=== PATIENT | female | born 1990 | race African-American/Black ===

== ENCOUNTER 2025-03-06 09:51 | Outpatient (REF) | payer OTHER, SELFPAY ==
--- NOTE | ~2025-03-06 | XR_ITS ---
EXAMINATION: XR KNEE 3 VIEWS LEFT HISTORY: M25.562 - Pain in left knee COMPARISON: There are no prior studies available for comparison. FINDINGS: Three views of the left knee are submitted. Osseous mineralization is normal. There is no fracture or dislocation. The joint spaces are preserved. The soft tissues are unremarkable. There is no joint effusion. XR/XR knee LT 3V IMPRESSION: Unremarkable examination of the left knee. Electronically signed by: Alok Mcclain MD 03/06/2025 03:21 PM EDT
--- OUTSIDE RECORDS SUMMARY | 2025-03-07 10:33 | XMS_ITS | Clinical Summary ---
Author Organization [facility] Address [address] [place] [address] Care Team Providers Care Equip Tech Name Role Phone Erasto Gomes MD Primary [...] age to complete this topic Care Teams Equip Tech Relationship Specialty Start Date End Date Erasto Gomes MD PCP - General Family Medicine 07/07/23
--- OUTSIDE RECORDS SUMMARY | 2025-03-07 10:33 | XMS_ITS | Clinical Summary ---
Author Organization [facility] it Address [address] [place] [address] Care Team Providers Care Road Tester Name Role Phone Erasto Gomes MD Primary Care Provider [phone] Allergies Active Allergy Reactions Criticality Noted Date [...] age to complete this topic Care Teams Road Tester Relationship Specialty Start Date End Date Erasto Gomes MD PCP - General 07/07/23
--- OUTSIDE RECORDS SUMMARY | 2025-03-07 10:33 | XMS_ITS | Encounter Summary ---
Author Organization [facility] Address [address] [place] [address] Care Team Providers Care Plumbing Technician Name Role Phone PcpZohra Primary Care Provider Kelly Genao APRN Primary Care Provider [phone] Encounter Details Date Type Department Care Team (Late st Contact Info) Description 08/17/2019 Scanned Document [facility] Neurology [address] [place] [address] Tanya Diane MD 35 [facility] 6 [place] [address] Social History Tobacco Use Types Packs/Day Years [...] on filedocumented in this encounter Care Teams Plumbing Technician Relationship Specialty Start Date End Date PcpZohra PCP - General General Medicine 09/16/18 12/13/19 Kelly Alvares APRN [address] [place] [id number] PCP - General Adult Health - PA/APNP/JUVENILE PROBATION OFFICER/PAN PULLER 12/14/19 documented as of this encounter
== END 2025-03-06 09:52 | disposition home or self-care (01) ==
LOC: HO.HOSX 09:51
PROVIDERS: Visit Provider Orthopaedic Surgery
DX: S83.242D Other tear of medial meniscus, current injury, left knee, subsequent encounter (principal); M25.562 Pain in left knee; Z79.1 Long term (current) use of non-steroidal anti-inflammatories (NSAID); X50.0XXD Overexertion from strenuous movement or load, subsequent encounter
CPT/HCPCS: 73562; 99202

== ENCOUNTER 2025-03-06 15:00 | Outpatient (AMB) | payer OTHER, SELFPAY ==
--- NOTE | 2025-03-06 15:10 | A.OFFVIS_ITS ---
Vital Signs 03/06/25 15:13 Height 5 ft 4 in Weight 160 lb BMI 27.5 Intake Visit Reasons: Left knee pain and giving way Intake Note: Renata is a 34 year old female who presents with complaints of progressively worsening left knee pain and giving way. The patient states that she injured her left knee while working on 01/28/2025. 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 Her group was practicing leg sweeps when she hyperextended her left knee and had acute onset of pain. She has been going to formal physical therapy which gives her minimal relief. She has also tried Tylenol and ibuprofen which gave her only mild relief. Most of the pain is along the medial and lateral aspects of the patient's knee. The patient denies any symptoms in her knee prior to this injury. Allergies No Known Allergies Allergy (Verified 03/06/25 15:13) Medication List - Last Reconciled 03/06/25 by Jp Lockhart MD ibuprofen 800 mg PO TID PRN Physical Exam Vital Signs: BMI result Body Mass Index 27.5 Const Other: Well-nourished well-developed very friendly female awake alert and oriented x3 in no acute distress Extrem Other: Left knee examination shows a minimal effusion, minimal crepitus with range of motion, tenderness along her medial joint line, positive Mavis's test, no instability Results Reviewed Results Reviewed: Standing full weight-bearing x-rays of the patient's left knee show minimal joint space narrowing, no acute bony abnormalities Assessment & Plan Assessment & Plan (1) Tear of medial meniscus of left knee: Code(s): S83.242A - Other tear of medial meniscus, current injury, left knee, initial encounter Category: Medical Plan Ms. Santacruz presents with left knee pain and mechanical symptoms possibly due to a medial meniscus tear. Thus, I will send the patient for an MRI of her left knee for further evaluation. I will see her back following the MRI to discuss the findings and treatment options she will continue with her activity modifications in the meantime. I spent 21 minutes in reviewing the patient's records and imaging studies, seeing the patient and documenting in the medical record. Orders: Orders XR knee LT 3V Today M25.562 - Pain in left knee MR knee LT wo con 03/07/25 S83.242A - Other tear of medial meniscus, current injury, left knee, initial encounter Coding Level of Care Code New Pt Level 3 (51638) Complex EM visit Add On G2211 Diagnoses Tear of medial meniscus of left knee S83.242A
[2025-03-06 15:13] VITALS: BMI 27.5
--- OUTSIDE RECORDS SUMMARY | 2025-03-06 16:06 | XMS_ITS | Clinical Summary ---
Author Organization [facility] it Address [address] [place] [address] Care Team Providers Care Freight And Passenger Agent Name Role Phone Erasto Gomes MD Primary Care Provider [phone] Allergies Active Allergy Reactions Criticality Noted Date Comments Melon 08/06/2022 Nut - Unspecified 08/06/2022 Medications ibuprofen (ADVIL,MOTRIN) 600 mg tablet Take 1 tablet (600 mg total) by mouth every 6 (six) hours as needed for pain. 08/06/2022 Active methocarbamoL (ROBAXIN) 500 mg tablet Take 1 tablet (500 mg total) by mouth 4 (four) times a day. Active Immunizations Name Administration Dates Next Due DTaP (Infanrix) 6wks to less than 7yo ,04/19/1991,06/03/1989,1988,01/13/1989 HPV, Quadrivalent 02/23/2007 Hep B, Unspecified 07/26/2001 IPV Inactivated polio (Ipol) 6wks and older 10/31/1993,06/03/1989,03/29/1989,1988 MMR, measles mumps and rubel la Live (Priorix; M-M-R II) 12mo and older 07/26/2001,08/29/1990 Td, Unspecified 07/26/1994,08/29/1990 Medical History Medical History Date Comments Allergic DX:Allergic Anxiety DX:Anxiety Eczema DX:Eczema Headache DX:Headache Migraine headache DX:Migraine he adache Low back pain DX:Low back pain Family History Medical History Relation Name Comments Cancer Maternal Grandfather James millan Current ly has kidney cancer Diabetes Maternal Grandfather James millan Diabetes Maternal Grandmother Krista millan Hypertension Mother Cecelia millan Cancer Mother's Sister Carmen from co zaid cancer Anxiety disorder Sister 3 Relation Name Status Comments Brother 3 Alive Father Alive Maternal Grandfather James millan Maternal Grandmother Krista millan Mother Cecelia millan Alive Mother's Sister Carmen Sister 3 Alive Social History Tobacco Use Types Packs/Day Years Used Date Smoking Tobacco: Never Smokeless Tobacco: Never Alcohol Use Standard Drinks/Week Comments Yes 1 (1 standard drink = 0.6 oz pur e alcohol) Comments Unknown Sex and Gender Information Value Date Recorded Sex Assigned at Not on file Legal Sex Female 12:50 AM EST Gender Identity Not on file Sexual Orientation Not on file Obstetrics History Last Filed Vital Signs Vital Sign Reading Time Taken Comments Blood Pressure 126/82 09/30/2022 8:21 AM EST Sit ting Left arm Pulse 76 09/30/2022 8:21 AM EST Temperature - - Respiratory Rate - - Oxygen Saturation - - Inhaled Oxygen Concentration - - Weight 77.1 kg (170 lb) 09/30/2022 8:21 AM EST Height 160 cm (5' 3 ) 09/30/2022 8:21 AM EST Body Mass Index 30.11 09/30/2022 8:21 AM EST Plan of Treatment Health Maintenance Due Date Last Done Comments DTaP,Tdap,and Td Vaccines (6 - Tdap) 1999 07/26/1994, 10/31/1993, 04/19/1991, Additional history exists Hepatitis B Vaccines (2 of 3 - 3-dose series) 08/23/2001 07/26/2001 HPV Vaccines (2 - 3-dose series) 03/23/2007 02/23/2007 Cervical Cancer Screening: Pap Smear 2009 HIV Screening 07/19/2022 Hepatitis C Screening 07/19/2022 Social Influencers of Health Screening 07/19/2022 COVID-19 Vaccine ( season) 2024 07/03/2021, 06/12/2021 Depression Screening 08/16/2024 Influenza Vaccine (#1) 2025 IPV Vaccines Completed 10/31/1993, 05/16, 03/29/1989, Additional history exists MMR Vaccines Completed 07/26/2001, 08/29/1990 HIB Vaccines Aged Out No longer eligi ble based on patient's age to complete this topic Hepatitis A Vaccines Aged Out No long er eligible based on patient's age to complete this topic Meningococcal ACWY Vaccine Aged Out N o longer eligible based on patient's age to complete this topic Meningococcal B Vaccine Aged Out No l onger eligible based on patient's age to complete this topic Pneumococcal Vaccine: Pediatrics (0 to 5 Years) and At-Risk Patients (6 to 49 Years) Aged Out No longer eligible based on patient's age to complete this topic RSV Immunization Patients Under 20 months Aged Out No longer eligible based on patient's age to complete this topic Varicella Vaccines Aged Out No longer eligible based on patient's age to complete this topic Care Teams Freight And Passenger Agent Relationship Specialty Start Date End Date Erasto Gomes MD PCP - General 07/07/23
--- OUTSIDE RECORDS SUMMARY | 2025-03-06 16:06 | XMS_ITS | Clinical Summary ---
Author Organization [facility] Address [address] [place] [address] Care Team Providers Care Binding Bench Worker Name Role Phone Erasto Gomes MD Primary Care Provider Unavailab le Allergies Active Allergy Reactions Criticality Noted Date Comments Melon 08/06/2022 Nuts 08/06/2022 Medications Medication Sig Dispensed Refills Start Date End Date Status ibuprofen 600 MG tablet Take 1 tablet (600 mg total) by mouth every 6 (six) hours as needed for pain. 30 tablet 0 08/06/2022 Active methocarbamol (ROBAXIN) 500 MG tablet Take 1 tablet (500 mg total) by mouth 4 (four) times a day. 0 Active Active Problems No known active problems Immunizations Name Administration Dates Next Due Covid-19 (Pfizer) Dilution Required 07/03/2021,1 DTaP 10/31/1993, 1,06/03/1989,1988,01/13/1989 HPV Quadrivalent 02/23/2007 Hepatitis B, Unspecified formulation 07/26/2001 IPV 10/31/1993, 9,03/29/1989,1988 MMR 07/26/2001,08/29/1990 Td (Adult), Unspecified formulation 07/26/1994,0 08/29/1990 Family History Medical History Relation Name Comments Cancer Maternal Aunt Carmen from colo [place] cancer Cancer Maternal Grandfather James millan Current ly has kidney cancer Diabetes Maternal Grandfather James millan Diabetes Maternal Grandmother Krista levy Hypertension Mother Cecelia millan Anxiety disorder Sister 3 Relation Name Status Comments Brother 3 Alive Father Alive Maternal Aunt Carmen Maternal Grandfather James millan Maternal Grandmother Krista millan Mother Cecelia millan Alive Sister 3 Alive Social History Tobacco Use Types Packs/Day Years Used Date Smoking Tobacco: Never Smokeless Tobacco: Never Tobacco Cessation:Counseling Given: Not Answered Alcohol Use Standard Drinks/Week Comments Yes 1 (1 standard drink = 0.6 oz pur e alcohol) Sex and Gender Information Value Date Recorded Sex Assigned at Female 08/06/2022 12:28 PM EST Gender Identity Not on file Sexual Orientation Not on file Job Start Date Occupation Industry Not on file Not on file Not on file Last Filed Vital Signs Vital Sign Reading Time Taken Comments Blood Pressure 86/50 02/23/2023 7:42 PM EDT Pulse 58 02/23/2023 7:42 PM EDT Temperature 36.5 C (97.7 F) 02/23/2023 4:29 PM EDT Respiratory Rate 15 02/23/2023 4:29 PM EDT Oxygen Saturation 100% 02/23/2023 7:42 PM EDT Inhaled Oxygen Concentration - - Weight 78 kg (172 lb) 02/23/2023 4:29 PM EDT Height 160 cm (5' 3 ) 02/23/2023 4:29 PM EDT Body Mass Index 30.47 02/23/2023 4:29 PM EDT Plan of Treatment Health Maintenance Due Date Last Done Comments DTap / Tdap / Td (6 - Tdap) 1999 07/26/1994, 10/31/1993, 04/19/1991, Additional history exists Depression Screening 2000 Hepatitis B Vaccines (2 of 3 - 3-dose series) 08/23/2001 07/26/2001 BMI Counseling 2006 Preventative Health Evaluation 2006 Cervical Cancer Screening (Pap Smear) 2009 COVID-19 Vaccine ( season) 2024 07/03/2021, 06/12/2021 Influenza Vaccine (#1) 2025 Hepatitis C Screening Discontinued Pneumococcal Vaccine Aged Out No long er eligible based on patient's age to complete this topic RSV Ped < 20 months Aged Out No longe r eligible based on patient's age to complete this topic Care Teams Binding Bench Worker Relationship Specialty Start Date End Date Erasto Gomes MD PCP - General Family Medicine 07/07/23
--- OUTSIDE RECORDS SUMMARY | 2025-03-06 16:06 | XMS_ITS | Encounter Summary ---
Author Organization [facility] Address [address] [place] [address] Care Team Providers Care Tariff Compiler Name Role Phone PcpZohra Primary Care Provider Kelly Genao APRN Primary Care Provider [phone] Encounter Details Date Type Department Care Team (Late st Contact Info) Description 08/17/2019 Scanned Document [facility] Neurology [address] [place] [address] Tanya Diane MD [address] [facility] 6 [place] [address] Social History Tobacco Use Types Packs/Day Years Used Date Smoking Tobacco: Never Smokeless Tobacco: Never Comments Unknown Sex and Gender Information Value Date Recorded Sex Assigned at Not on file Legal Sex Female 3:01 PM EST Gender Identity Not on file Sexual Orientation Not on file documented as of this encounter Plan of Treatment Not on file documented as of this encounter Visit Diagnoses Not on filedocumented in this encounter Care Teams Tariff Compiler Relationship Specialty Start Date End Date PcpZohra PCP - General General Medicine 09/16/18 12/13/19 Kelly Alvares APRN [address] [place] [id number] PCP - General Adult Health - PA/APNP/CHAIRMAN AND CHIEF EXECUTIVE OFFICER/PROFESSOR OF SOCIAL WORK 12/14/19 documented as of this encounter
== END 2025-03-06 15:23 | disposition home or self-care (01) ==
LOC: HO.HOS 15:01
PROVIDERS: Visit Provider Orthopaedic Surgery
DX: S83.242A Other tear of medial meniscus, current injury, left knee, initial encounter (principal)
CPT/HCPCS: 99203; G2211

== ENCOUNTER → 2025-03-06 15:02 | Outpatient (BNV) | payer OTHER, SELFPAY | PROVIDERS: Visit Provider Radiology Diagnostic Radiology | DX: M25.562 Pain in left knee (principal) | CPT/HCPCS: 73562 ==

== ENCOUNTER → 2025-05-07 20:05 | Outpatient (BNV) | payer OTHER, SELFPAY | PROVIDERS: Visit Provider Radiology Diagnostic Radiology | DX: S83.242A Other tear of medial meniscus, current injury, left knee, initial encounter (principal); M25.462 Effusion, left knee; M67.462 Ganglion, left knee | CPT/HCPCS: 73721 ==

== ENCOUNTER 2025-05-07 20:12 | Outpatient (REF) | payer OTHER, SELFPAY ==
--- NOTE | ~2025-05-07 | MR_ITS ---
CLINICAL HISTORY: S83.242A - Other tear of medial meniscus, current injury, left knee, ini... MR left knee without gadolinium Comparison: None provided Findings: No acute fracture or pathologic bone lesion. The articular cartilage is normal. There is a small patellofemoral joint effusion. Multiple small ganglion cysts are seen along the joint line from the anterior root of the lateral meniscus extending along the lateral femoral condyle within Hoffa's fat pad. All ligaments are intact. No disruption of the patellar retinacula or iliotibial band. The quadriceps and patellar tendons are normal. The menisci are intact. IMPRESSION: 1. Chain of multiple small ganglion cysts related to the anterior root of the lateral meniscus and extending along the anterior articular surface of the lateral femoral condyle. 2. Small patellofemoral joint effusion. This document has been electronically signed by: Abdon Singh MD on 05/09/2025 09:58:25
--- OUTSIDE RECORDS SUMMARY | 2025-05-07 20:19 | XMS_ITS | Encounter Summary ---
Author Organization [facility] Address [address] [place] [address] Care Team Providers Care Quartz Miner Name Role Phone PcpZohra Primary Care Provider Kelly Genao APRN Primary Care Provider Encounter Details Date Type Department Care Team (Late st Contact Info) Description 08/17/[address] [facility] Neurology [address] [place] [address] Tanya Diane MD [address] [facility] 6 [place] [address] Social History Tobacco Use Types Packs/Day Years [...] on filedocumented in this encounter Care Teams Quartz Miner Relationship Specialty Start Date End Date PcpZohra PCP - General General Medicine 09/16/18 12/13/19 Kelly Alvares APRN [address] [place] [id number] PCP - General Adult Health - PA/APNP/METALLURGIST HELPER/PICK REMOVER 12/14/19 documented as of this encounter
--- OUTSIDE RECORDS SUMMARY | 2025-05-07 20:19 | XMS_ITS | Clinical Summary ---
Author Organization [facility] Address [address] [place] [address] Care Team Providers Care Sustainable Agriculture Specialist Name Role Phone Kelly Alvares APRN Primary Care Provider [phone] Allergies No known active allergies Medications ondansetron (ZOFRAN) 4 MG tabletIndication s:Nausea Take 1 tablet (4 mg total) by mouth 3 times daily (every 8 hours) as needed for nausea or vomiting. 10 tablet 09/16/2018 Active DULoxetine (CYMBALTA) 30 MG capsuleIndicatio ns:Polyarthritis with positive rheumatoid factor (HCC),Arthralgia , unspecified joint TAKE 1 CAPSULE BY MOUTH EVERY DAY 30 capsule 1 07/17/2019 Active Social History Tobacco Use Types Packs/Day Years Used Date Smoking Tobacco: Never Smokeless Tobacco: Never Comments Unknown Sex and Gender Information Value Date Recorded Sex Assigned at Not on file Legal Sex Female 3:01 PM EST Gender Identity Not on file Sexual Orientation Not on file Last Filed Vital Signs Vital Sign Reading Time Taken Comments Blood Pressure 134/80 03/25/2019 5:24 PM EDT Pulse 80 03/25/2019 5:24 PM EDT Temperature 36.1 C (97 F) 03/25/2019 5:24 PM EDT Respiratory Rate 18 03/25/2019 5:24 PM EDT Oxygen Saturation 97% 03/25/2019 5:24 PM EDT Inhaled Oxygen Concentration - - Weight - - Height - - Body Mass Index - - Plan of Treatment Health Maintenance Due Date Last Done Comments Hepatitis C Virus Screening 1988 HIV Screening 2001 DTaP/Tdap/Td Vaccines (1 - Tdap) 2007 Hepatitis B Vaccines (1 of 3 - 19+ 3-dose series) 2007 Pap Smear (Ages 21-65) 2009 HPV Vaccines (1 - 3-dose SCD M series) 2015 Influenza Vaccine 03/16/2025 07/20/2020 COVID-19 Vaccine (1 - 2023-2 5 season) 2025 Pneumococcal Vaccine: Pediat alice (0-5 Years) and At-Risk Patients (6 to 49 Years) Aged Out No longer eligible b ased on patient's age to complete this topic Insurance [facility] [employer] [facility] Care Teams Sustainable Agriculture Specialist Relationship Specialty Start Date End Date Kelly Alvares, RAJWINDER [address] [place] [address] PCP - General Adult Health - PA/APJAGDEEP/TICKET SPECULATOR/INGREDIENT SPECIALIST 12/14/19
--- OUTSIDE RECORDS SUMMARY | 2025-05-07 20:19 | XMS_ITS | Clinical Summary ---
Author Organization [facility] Address [address] [place] [address] Care Team Providers Care Foreman Shipping Department Name Role Phone Erasto Gomes MD Primary [...] (Pap Smear) 2009 COVID-19 Vaccine ( season) 2025 07/03/2021, 06/12/2021 Influenza Vaccine (#1) 2025 Hepatitis C Screening Discontinued Pneumococcal Vaccine Aged Out No long er eligible based on patient's age to complete this topic RSV Ped < 20 months Aged Out No longe r eligible based on patient's age to complete this topic Care Teams Foreman Shipping Department Relationship Specialty Start Date End Date Erasto Gomes MD PCP - General Family Medicine 07/07/23
--- OUTSIDE RECORDS SUMMARY | 2025-05-07 20:19 | XMS_ITS | Clinical Summary ---
Author Organization [facility] it Address [address] [place] [address] Care Team Providers Care Service Center Assistant Name Role Phone Erasto Gomes MD Primary Care Provider [phone] Allergies Active Allergy Reactions Criticality Noted Date [...] 07/19/2022 Social Influencers of Health Screening 07/19/2022 Depression Screening 08/16/2024 COVID-19 Vaccine ( season) 2025 07/03/2021, 06/12/2021 Influenza Vaccine (#1) 2025 IPV Vaccines Completed [...] age to complete this topic Care Teams Service Center Assistant Relationship Specialty Start Date End Date Erasto Gomes MD PCP - General 07/07/23
== END 2025-05-07 20:13 | disposition home or self-care (01) ==
LOC: HO.MRI 20:12
PROVIDERS: Visit Provider Orthopaedic Surgery
DX: S83.242A Other tear of medial meniscus, current injury, left knee, initial encounter (principal)
CPT/HCPCS: 73721

== ENCOUNTER 2025-05-09 11:15 | Outpatient (AMB) | payer OTHER, SELFPAY ==
--- NOTE | 2025-05-09 11:22 | A.OFFVIS_ITS ---
Vital Signs 05/09/25 11:25 Height 5 ft 4 in Weight 155 lb BMI 26.6 Intake Visit Reasons: OV-Lt knee injury WC DOI: 01/28/25 Intake Note: Renata is a 34 year old female who presents with complaints of intermittent discomfort along the posterior aspect of her left knee and thigh. The patient continues with her activity modifications. She presents for review of her left knee MRI. Allergies No Known Allergies Allergy (Verified 05/09/25 11:26) Medication List - Last Reconciled 05/10/25 by Jp Lockhart MD ibuprofen 800 mg PO TID PRN Physical Exam Vital Signs: BMI result Body Mass Index 26.6 Const Other: Well-nourished well-developed very friendly female awake alert and oriented x3 in no acute distress Extrem Other: Left knee examination shows a minimal effusion, minimal crepitus with range of motion, mild tenderness along her lateral joint line, negative Mavis's test, no instability, tenderness along her hamstrings Results Reviewed Results Reviewed: MRI of the patient's left knee shows a small tear of the anterior horn of the lateral meniscus as well as several small cysts along the anterior horn of the lateral meniscus, no ligamentous injury Assessment & Plan Assessment & Plan (1) Left knee pain: Code(s): M25.562 - Pain in left knee Category: Medical Plan Ms. Santacruz presents with intermittent left knee discomfort most likely due to a hamstring strain. I am not sure that her symptoms are related to the small cy sts or small lateral meniscus tear found on her MRI. These might just be incidental findings. The patient wishes to hold off on arthroscopic surgery for now. I agree with this plan. She will continue with her activity modifications. She will gradually progress to full activities as tolerated. She will follow up with me on an as-needed basis should her symptoms not plateau at an unacceptable level over the next few months. I spent 20 minutes in reviewing the patient's records and imaging studies, seeing the patient and documenting in the medical record. Coding Level of Care Code Est Pt Level 3 (68687) Complex EM visit Add On G2211 Diagnoses Left knee pain M25.562
[2025-05-09 11:25] VITALS: BMI 26.6
--- OUTSIDE RECORDS SUMMARY | 2025-05-09 14:25 | XMS_ITS | Clinical Summary ---
Author Organization [facility] it Address [address] [place] [address] Care Team Providers Care Fur Glosser Name Role Phone Erasto Gomes MD Primary Care Provider [phone] Allergies Active Allergy Reactions Criticality Noted Date [...] age to complete this topic Care Teams Fur Glosser Relationship Specialty Start Date End Date Erasto Gomes MD PCP - General 07/07/23
--- OUTSIDE RECORDS SUMMARY | 2025-05-09 14:25 | XMS_ITS | Encounter Summary ---
Author Organization [facility] Address [address] [place] [address] Care Team Providers Care Line Assembly Utility Worker Name Role Phone PcpZohra Primary Care Provider Kelly Genao APRN Primary Care Provider [phone] Encounter Details Date Type Department Care Team (Late st Contact Info) Description 08/17/2019 Scanned Document [facility] Neurology [address] [place] [address] Tanya Diane MD 35 [facility] 6 [place] [address] Social History Tobacco Use Types Packs/Day Years [...] on filedocumented in this encounter Care Teams Line Assembly Utility Worker Relationship Specialty Start Date End Date PcpZohra PCP - General General Medicine 09/16/18 12/13/19 Kelly Alvares APRN [address] [place] [address] PCP - General Adult Health - PA/APNP/DRYER FEEDER/YACHT MASTER 12/14/19 documented as of this encounter
--- OUTSIDE RECORDS SUMMARY | 2025-05-09 14:25 | XMS_ITS | Clinical Summary ---
Author Organization [facility] Address [address] [place] [address] Care Team Providers Care Soup Mixer Name Role Phone Erasto Gomes MD Primary [...] age to complete this topic Care Teams Soup Mixer Relationship Specialty Start Date End Date Erasto Gomes MD PCP - General Family Medicine 07/07/23
--- OUTSIDE RECORDS SUMMARY | 2025-05-09 14:25 | XMS_ITS | Clinical Summary ---
Author Organization [facility] Address [address] [place] [address] Care Team Providers Care Surgical Garment Fitter Name Role Phone Kelly Alvares APRN Primary Care Provider [phone] Allergies No known active allergies Medications ondansetron [...] patient's age to complete this topic Insurance [employer] [facility] [employer] [facility] [employer] [facility] Care Teams Surgical Garment Fitter Relationship Specialty Start Date End Date Kelly Alvares, RAJWINDER [address] [place] [address] PCP - General Adult Health - PA/APJAGDEEP/SPEEDOMETER INSPECTOR/REVENUE STAMP CUTTER 12/14/19
== END 2025-05-09 11:50 | disposition home or self-care (01) ==
LOC: HO.HOS 11:15
PROVIDERS: Visit Provider Orthopaedic Surgery
DX: M25.562 Pain in left knee (principal)
CPT/HCPCS: 99213; G2211

== ENCOUNTER → 2025-05-09 11:15 | Outpatient (BNVA) | payer OTHER, SELFPAY | PROVIDERS: Visit Provider Orthopaedic Surgery | DX: M25.562 Pain in left knee (principal) | CPT/HCPCS: 99212 ==